=== PATIENT | female | born 1980 | race Two or more races ===

== ENCOUNTER 2017-06-16 10:08 | Day surgery (SDC) | payer OTHER ==
[2017-06-14 13:05] VITALS: BP 126/81
[~2017-06-16] VITALS: Ht 160 cm; Wt 92.0 kg
[~2017-06-16 10:08] MED LIST: NONE PER PT
[2017-06-16] MEDS ORDERED: LACTATED RINGERS 1,000 ML IV SCH (10:35)
[2017-06-16] MEDS ORDERED: OMEP-110 PO (10:35)
[2017-06-16 10:41] LABS: HCG UR SG 1.022 (1.003-1.030)
[2017-06-16] MEDS ORDERED: LIDOCAINE 1%, 2ML SQ PRN (11:00)
[2017-06-16] MEDS ORDERED: EPINEPHRINE 1 MG/ML, 1ML ONE (11:59)
[2017-06-16] MEDS ORDERED: BUPIVACAINE/PF 0.25% ONE (11:59)
[2017-06-16] MEDS ORDERED: SILVER NITRATE STICK TP ONE (11:59)
[2017-06-16] MEDS ORDERED: MIDAZOLAM 1 MG/ML, 2ML ONE (12:07)
[2017-06-16] MEDS ORDERED: ROCURONIUM 10 MG/ML,10ML ONE (12:37)
[2017-06-16] MEDS ORDERED: PROPOFOL 10 MG/ML, 20ML ONE (12:37)
[2017-06-16] MEDS ORDERED: FENTANYL PF 100 MCG/2ML ONE ×3 (12:38→14:20)
[2017-06-16] MEDS ORDERED: ONDANSETRON 2MG/ML, 2ML ONE (12:54)
[2017-06-16] MEDS ORDERED: DEXAMETHASONE 4 MG/ML, 1ML ONE ×2 (12:54)
[2017-06-16] MEDS ORDERED: NEOSTIGMINE 1 MG/ML, 10ML ONE (13:08)
[2017-06-16] MEDS ORDERED: GLYCOPYRROLATE 0.2MG/1ML, 5ML ONE (13:08)
[2017-06-16] MEDS ORDERED: OXYcodone 5 MG/5 ML ORAL.SOL UDC ONE (14:20)
[2017-06-16] MEDS ORDERED: ACETAMINOPHEN 650 MG/20.3 ML UDC ONE (14:20)
[2017-06-16] MEDS ORDERED: KETOROLAC 30 MG/1 ML ONE (14:20)
[2017-06-16] MEDS: FENTANYL PF 100 MCG/2ML IV PRN ×2 (14:22→14:42)
[2017-06-16] MEDS ORDERED: OXYcodone 5 MG/5 ML ORAL.SOL UDC PO PRN (14:30)
[2017-06-16] MEDS ORDERED: ONDANSETRON 2MG/ML, 2ML IVPush PRN (14:30)
[2017-06-16] MEDS ORDERED: HYDROcodone/APAP 7.5-325MG/15ML UDC PO PRN (14:30)
[2017-06-16] MEDS ORDERED: KETOROLAC 30 MG/1 ML IV PRN (14:30)
[2017-06-16] MEDS ORDERED: morphine SULFATE 10 MG/ML, 1ML IV PRN (14:30)
== END 2017-06-16 16:05 | disposition home or self-care (01) ==
LOC: OUT 10:08
PROVIDERS: ATTEND Specialist
DX: N83.201 Unspecified ovarian cyst, right side (principal); N80.1 Endometriosis of ovary; E66.9 Obesity, unspecified
CPT/HCPCS: 58661; 81025; 88305; J0171; J1100; J1885; J2250; J2405; J2704; J2710; J3010; J3490; J7120